=== PATIENT | male | born 1990 | race Hispanic/Latino ===

== ENCOUNTER 2022-02-28 13:31 | Emergency (ER) | payer SELFPAY ==
[~2022-02-28] VITALS: Ht 160 cm; Wt 88.8 kg
--- NOTE | 2022-03-01 21:14 | EKG ---
[facility] [address] [facility] [place], [place] [address] Signed Normal sinus rhythm Normal ECG No previous ECGs available Confirmed by JESUS SIMON MD ([id number]) on 03/01/2022 9:14:34 PM Electronically Signed By: JESUS SIMON MD 03/01/222113 PATIENT NAME: KEMAR TORIBIO Electrocardiogram DATE OF : 88 PHYSICIAN: JESUS SIMON MD REPORT #: [id number] REPORT IS CONFIDENTIAL AND NOT TO BE RELEASED WITHOUT AUTHORIZATION
== END 2022-02-28 15:21 | disposition home or self-care (01) ==
LOC: ED 13:31
DX: R07.89 Other chest pain (principal); V89.2XXA Person injured in unspecified motor-vehicle accident, traffic, initial encounter
CPT/HCPCS: 36415; 71045; 71260; 72040; 72125; 72170; 80053; 81001; 83690; 84484; 85025; 93005; 93010; 99285-25; Q9967

== ENCOUNTER 2022-03-06 23:35 | Emergency (ER) | payer SELFPAY ==
[~2022-03-06] VITALS: Ht 160 cm; Wt 81.7 kg
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
== END 2022-03-07 02:53 | disposition home or self-care (01) ==
LOC: ED 23:35
DX: H61.22 Impacted cerumen, left ear (principal)
CPT/HCPCS: 70450; 99283-25

== ENCOUNTER 2022-07-14 22:07 | Emergency (ER) | payer SELFPAY ==
[~2022-07-14] VITALS: Ht 160 cm; Wt 93.0 kg
--- NOTE | 2022-07-15 21:53 | EKG ---
[facility] [address] [facility] [place], [place] [address] Signed Sinus tachycardia with premature supraventricular complexes Otherwise normal ECG Confirmed by JESUS SIMON MD ([id number]) on 07/15/2022 9:53:28 PM Electronically Signed By: JESUS SIMON MD 07/15/222152 PATIENT NAME: MALU AUGUSTINEKEMAR Electrocardiogram DATE OF : 88 PHYSICIAN: JESUS SIMON MD REPORT #: [id number] REPORT IS CONFIDENTIAL AND NOT TO BE RELEASED WITHOUT AUTHORIZATION
== END 2022-07-14 23:00 | disposition home or self-care (01) ==
LOC: ED 22:07
DX: R00.2 Palpitations (principal); R79.89 Other specified abnormal findings of blood chemistry
CPT/HCPCS: 36415; 80053; 83735; 85025; 99285-25